=== PATIENT | male | born 1980 | race Caucasian/White ===

== ENCOUNTER 2018-02-21 09:13 | Emergency (ER) | payer MEDICAID, OTHER ==
[~2018-02-21] VITALS: Ht 182.9 cm; Wt 122.9 kg
[2018-02-21 09:25] VITALS: Ht 182.9 cm; Wt 122.9 kg
[2018-02-21 12:06] VITALS: BP 147/93
== END 2018-02-21 12:06 | disposition home or self-care (01) ==
LOC: ED 09:13
DX: S16.1XXA Strain of muscle, fascia and tendon at neck level, initial encounter (principal); S63.501A Unspecified sprain of right wrist, initial encounter; S93.601A Unspecified sprain of right foot, initial encounter; W05.1XXA Fall from non-moving nonmotorized scooter, initial encounter; Y93.89 Activity, other specified; Y92.89 Other specified places as the place of occurrence of the external cause; Y99.8 Other external cause status; Z88.0 Allergy status to penicillin
CPT/HCPCS: Q0092